=== PATIENT | female | born 1970 | race Asian ===

== ENCOUNTER 2018-03-27 15:16 | Emergency (ER) | payer MEDICAID, OTHER ==
[~2018-03-27] VITALS: Ht 162.6 cm; Wt 77.0 kg
[2018-03-27] MEDS ORDERED: SODIUM CHLORIDE 0.9% 1,000 ML IV ONE (15:57)
[2018-03-27 16:19] LABS: BASOPHILS % 1.1 % (0.0-2.0); EOSINOPHILS % 1.5 % (0.0-5.0); HEMATOCRIT. 25.5 % (36.0-48.0); HEMOGLOBIN. 7.8 g/dL (12.0-16.0); LYMPHOCYTES % 20.9 % (20.0-50.0); MEAN CORPUSCULAR HEMOGLOBIN 18.3 pg (28.0-32.0); MEAN PLATELET VOLUME 6.8 fl (7.4-10.4); MONOCYTES % 8.7 % (2.0-8.0); NEUTROPHILS % 67.8 % (40.0-76.0); PLATELET 478 x1000/uL (130-400); RED BLOOD CELL COUNT 4.25 mill/uL (4.2-5.4); RED CELL DISTRIBUTION WIDTH 18.1 % (11.6-14.6)
[2018-03-27 16:24] LABS: CHLORIDE 96 mEq/L (98-107)
[2018-03-27 16:25] LABS: PROTHROMBIN TIME 10.6 sec (9.4-11.6)
[2018-03-27 16:28] LABS: CLARITY URINE CLEAR (CLEAR); COLOR URINE YELLOW (YELLOW); KETONES URINE NEGATIVE (NEGATIVE); LEUKOCYTE ESTERASE URINE 2+ (NEGATIVE); NITRITE URINE NEGATIVE (NEGATIVE); OCCULT BLOOD URINE 1+ (NEGATIVE); PH URINE 7.5 (4.5-8.0); PROTEIN URINE NEGATIVE (NEGATIVE); SPECIFIC GRAVITY URINE 1.008 (1.005-1.030); UROBILINOGEN URINE 0.2 E.U./dL (0.2-1.0)
[2018-03-27 16:35] LABS: PLATELET ESTIMATE INCREASED
[2018-03-27 16:52] LABS: B-HCG QUANTITATIVE < 1 mIU/mL (<3)
[2018-03-27 18:54] VITALS: BP 122/73
== END 2018-03-27 19:16 | disposition home or self-care (01) ==
LOC: ER 15:16 → EDBEDREQ 16:01 → ER 19:16 → CANBEDREQ 19:26
DX: D64.9 Anemia, unspecified (principal); R53.1 Weakness; D25.9 Leiomyoma of uterus, unspecified; E78.00 Pure hypercholesterolemia, unspecified; I10 Essential (primary) hypertension
CPT/HCPCS: 36415; 76830; 76856; 80053; 81003; 83690; 84702; 85025; 85610; 86850; 86900; 86901; 99285; J7030; Z7610

== ENCOUNTER 2018-09-02 09:53 | Emergency (ER) | payer MEDICAID, OTHER ==
[~2018-09-02] VITALS: Ht 160 cm; Wt 81.0 kg
[2018-09-02] MEDS ORDERED: SODIUM CHLORIDE 0.9% 1,000 ML IV ONE (10:24)
[2018-09-02] MEDS ORDERED: KETOROLAC 30MG/ML VIAL IV STA (10:24)
[2018-09-02] MEDS ORDERED: METOCLOPRAMIDE HCL 10MG/2ML VIAL IV ONE (10:30)
[2018-09-02 14:26] VITALS: BP 121/75
== END 2018-09-02 14:29 | disposition home or self-care (01) ==
LOC: ER 09:53
DX: E86.0 Dehydration (principal); R51 Headache; A08.4 Viral intestinal infection, unspecified; I10 Essential (primary) hypertension; E78.00 Pure hypercholesterolemia, unspecified; Z98.890 Other specified postprocedural states
CPT/HCPCS: 81025; 96361; 96374; 96375; 99283; J1885; J2765; J7030

== ENCOUNTER 2022-12-29 11:31 | Emergency (ER) | payer OTHER ==
[~2022-12-29] VITALS: Ht 157.5 cm; Wt 78.0 kg
[2022-12-29] MEDS ORDERED: IBUPROFEN 600MG TABLET PO ONE (14:30)
[2022-12-29] MEDS ORDERED: ONDANSETRON HCL 4MG TABLET PO ONE (14:30)
[2022-12-29 15:01] LABS: CLARITY URINE CLEAR (CLEAR); COLOR URINE YELLOW (YELLOW); KETONES URINE NEGATIVE (NEGATIVE); LEUKOCYTE ESTERASE URINE 1+ (NEGATIVE); NITRITE URINE NEGATIVE (NEGATIVE); OCCULT BLOOD URINE 2+ (NEGATIVE); PH URINE 7.5 (4.5-8.0); PROTEIN URINE 2+ (NEGATIVE); SPECIFIC GRAVITY URINE 1.012 (1.005-1.030); UROBILINOGEN URINE 0.2 E.U./dL (0.2-1.0)
[2022-12-29] MEDS ORDERED: CEFTRIAXONE SODIUM 1 G/VIAL IM ONE (16:00)
[2022-12-29] MEDS ORDERED: AMOX1TAB16 MT (16:50)
[2022-12-29] MEDS ORDERED: ONDA4TAB50 MT (16:50)
[2022-12-29 17:20] VITALS: BP 140/86
== END 2022-12-29 17:24 | disposition home or self-care (01) ==
LOC: ER 11:31
DX: N12 Tubulo-interstitial nephritis, not specified as acute or chronic (principal); E78.00 Pure hypercholesterolemia, unspecified; Z98.890 Other specified postprocedural states; Z86.39 Personal history of other endocrine, nutritional and metabolic disease
CPT/HCPCS: 81003; 87086; 96372; 99283; J0696; Q0162; Z7610